=== PATIENT | female | born 1995 | race Caucasian/White ===

== ENCOUNTER 2016-08-17 10:25 | Emergency (ER) | payer SELFPAY ==
[2016-08-17 10:50] VITALS: BP 152/94
--- NOTE | 2016-08-17 11:37 | UC ---
Throat Pain/Nasal Hao HPI - HPI Summary HPI Summary: 20 yo female with about a 5 day hx of sinus pressure pain /nasal congestion/ sore throat and post nasal drip productive cough at times no f/c no sob hx of asthma...no wheezing - History of Current Complaint Chief Complaint: UCRespiratory Stated Complaint: SINUS PRESSURE Time Seen by Provider: 08/17/16 11:31 Hx Obtained From: Patient Hx Last Menstrual Period: 08/12/16 Onset/Duration: Gradual Onset, Lasting Days Severity: Moderate Pain Intensity: 3 Pain Scale Used: 0-10 Numeric Cough: Productive Associated Signs & Symptoms: Positive: Sinus Discomfort, Nasal Discharge - Epiglottits Risk Factors Epiglottis Risk Factors: Negative - Allergies/Home Medications Allergies/Adverse Reactions: Allergies Allergy/AdvReac Type Severity Reaction Status Date / Time No Known Allergies Allergy Verified 08/17/16 10:44 Home Medications: Home Medications Antidepressant 1 tab PO QAM 08/17/16 [History Confirmed 08/17/16] Dextromethorphan-Phenylephrine [Vicks Dayquil Cold & Flu] 2 cap PO Q6H PRN 08/17 [History Confirmed 08/17/16] Norgestimate-Ethinyl Estradiol [Sprintec 28 0.25-35 mg-Mcg] 1 tab PO DAILY 08/17 [History Confirmed 08/17/16] Soft Lens Products [Opti-Free Express Rewetti] 2 drop BOTH EYES QAM 08/17/16 [ History Confirmed 08/17/16] PMH/Surg Hx/FS Hx/Imm Hx Previously Healthy: Yes Respiratory History Of: Reports: Asthma - Surgical History Surgical History: None - Family History Known Family History: Positive: Hypertension, Respiratory Disease - Social History Alcohol Use: Weekly Substance Use Type: None Smoking Status (MU): Never Smoked Tobacco - Immunization History Most Recent Influenza Vaccination: Not the 2016/2016 Season Review of Systems Constitutional: Negative Skin: Negative Eyes: Negative ENT: Sore Throat, Nasal Discharge Respiratory: Cough Cardiovascular: Negative Gastrointestinal: Negative Genitourinary: Negative Motor: Negative Neurovascular: Negative Musculoskeletal: Negative Neurological: Negative Psychological: Negative All Other Systems Reviewed And Are Negative: Yes Physical Exam Triage Information Reviewed: Yes Appearance: Well-Appearing, No Pain Distress, Well-Nourished Vital Signs: Initial Vital Signs Temp 99.2 F 08/17/16 10:40 Pulse 82 08/17/16 10:40 Resp 16 08/17/16 10:40 BP 152/94 08/17/16 10:40 Pulse Ox 99 08/17/16 10:40 Vital Signs Reviewed: Yes Eyes: Positive: Conjunctiva Clear ENT: Positive: Hearing grossly normal, Pharyngeal erythema, Nasal congestion, Nasal drainage, TMs normal, Other: - bilateral max sinus tenderness. Negative: Tonsillar swelling, Tonsillar exudate, Trismus, Muffled/hoarse voice Neck: Positive: Supple, Nontender, Enlarged Nodes @ - ant cervical Respiratory: Positive: Lungs clear, Normal breath sounds, No respiratory distress, No accessory muscle use, Respiratory distress. Negative: Stridor, Wheezing Cardiovascular: Positive: RRR, No Murmur. Negative: Tachycardia, Bradycardia Musculoskeletal Exam: Normal Neurological: Positive: Alert Psychological Exam: Normal Skin Exam: Normal Throat Pain/Nasal Course/Dx - Differential Dx/Diagnosis Provider Diagnoses: acute sinusitis Discharge - Discharge Plan Condition: Stable Disposition: HOME Prescriptions: Amoxicillin (*) 875 mg PO BID #20 tab Fluticasone NASAL SPRAY 50MCG* [Flonase NASAL SPRAY 50MCG*] 2 spray BOTH NARES DAILY #1 btl Patient Education Materials: Sinusitis (ED) Referrals: Sita Lomeli MD [Primary Care Provider] - 5 Days (if not better recheck in about 5 days) Additional Instructions: recheck for new or worsening symptoms
== END 2016-08-17 11:46 | disposition home or self-care (01) ==
LOC: UCCORT 10:25
DX: J01.90 Acute sinusitis, unspecified (principal); J45.909 Unspecified asthma, uncomplicated
CPT/HCPCS: 99212; G0463

== ENCOUNTER 2016-09-12 09:13 | Emergency (ER) | payer OTHER ==
[2016-09-12 09:57] VITALS: BP 130/74
--- NOTE | 2016-09-12 11:12 | UC ---
Respiratory Complaint HPI - HPI Summary HPI Summary: The patient comes in today for: 1. Dizziness, lightheadedness, stuffy nose, sore throat, coughing, headache, backache, weakness: She states that her worse symptoms are sinus pressure/sore throat. Onset: 4 weeks ago. Palliative/provocative: Amoxicillin helped, but she regressed after improving about 80% Quality: Pressure, soreness. Region: Sinuses, throat. Severity: 8/10 though she looks more like 4/10 Time: Constant. Associated symptoms: Fevers: None. Rhinitis: Green yellow Cough productive: green yellow Upper tooth pain: NOne. * - History of Current Complaint Chief Complaint: UCRespiratory Stated Complaint: COUGH/ST Time Seen by Provider: 09/12/16 10:58 Hx Obtained From: Patient Hx Last Menstrual Period: 09/10/16 ?: No - Allergies/Home Medications Allergies/Adverse Reactions: Allergies Allergy/AdvReac Type Severity Reaction Status Date / Time No Known Allergies Allergy Verified 09/12/16 09:57 PMH/Surg Hx/FS Hx/Imm Hx Previously Healthy: No - Allergic rhinitis Endocrine History Of: Denies: Diabetes, Thyroid Disease, Hyperthyroidism, Hypothyroidism, Dyslipidemia Cardiovascular History Of: Denies: Cardiac Disorders, Hypertension, Pacemaker/ICD, Myocardial Infarction , Congestive Heart Failure, Atrial Fibrillation, Deep Vein Thrombosis, Bleeding Disorders Respiratory History Of: Reports: Asthma Denies: COPD, Bronchitis, Pneumonia, Pulmonary Embolism GI/ History Of: Denies: Gastroesophageal Reflux, Ulcer, Gastrointestinal Bleed, Gall Bladder Disease, Kidney Stones, Diverticulitis, Renal Disease, Urosepsis Neurological History Of: Denies: TIA, CVA, Dementia, Seizures, Migraine Psychological History Of: Reports: Anxiety, Depression - She can't remember the name of the anti-depressant. Denies: Bipolar Disorder, Schizophrenia, Post Traumatic Stress Disorder Cancer History Of: Denies: Lung Cancer, Colorectal Cancer, Breast Cancer, Prostate Cancer, Cervical Cancer Other History Of: Negative For: HIV, Hepatitis B, Hepatitis C, Anticoagulant Therapy - Surgical History Surgical History: None - Family History Known Family History: Positive: Hypertension, Respiratory Disease Negative: Cardiac Disease - Social History Occupation: Student Alcohol Use: Weekly Substance Use Type: None Smoking Status (MU): Never Smoked Tobacco - Immunization History Most Recent Influenza Vaccination: Not the 2015/2016 Season Review of Systems Constitutional: Negative Skin: Negative Eyes: Negative ENT: Sore Throat, Nasal Discharge Respiratory: Cough Gastrointestinal: Negative Genitourinary: Negative All Other Systems Reviewed And Are Negative: Yes Physical Exam Triage Information Reviewed: Yes Appearance: Well-Appearing, No Pain Distress, Well-Nourished Vital Signs: Initial Vital Signs Temp 98.5 F 09/12/16 09:53 Pulse 95 09/12/16 09:53 Resp 16 09/12/16 09:53 BP 130/74 09/12/16 09:53 Pulse Ox 100 09/12/16 09:53 Vital Signs Reviewed: Yes Eyes: Positive: Conjunctiva Clear. Negative: Discharge ENT: Positive: Hearing grossly normal. Negative: Pharyngeal erythema, Nasal congestion, Nasal drainage, TM bulging, TM dull, TM red, Tonsillar swelling, Tonsillar exudate Neck: Positive: Supple, Nontender, No Lymphadenopathy. Negative: Nuchal Rigidity Respiratory: Positive: Lungs clear, No respiratory distress, No accessory muscle use. Negative: Crackles, Wheezing Cardiovascular: Positive: RRR, No Murmur Abdomen Description: Positive: Nontender, No Organomegaly, Soft. Negative: Distended, Guarding Musculoskeletal: Positive: Strength Intact, ROM Intact, No Edema Neurological: Positive: Alert, Muscle Tone Normal Psychological: Positive: Age Appropriate Behavior, Consolable Skin: Negative: rashes, breakdown UC Diagnostic Evaluation - Laboratory O2 Sat by Pulse Oximetry: 100 Respiratory Course/Dx - Differential Dx/Diagnosis Differential Diagnosis/HQI/PQRI: Bronchitis, Laryngitis, Sinusitis Provider Diagnoses: Sinusitis. pharyngitis Discharge - Discharge Plan Condition: Stable Disposition: HOME Patient Education Materials: Sinusitis (ED) Referrals: Sita Lomeli MD [Primary Care Provider] - 1 Week (Please see your primary care provider in about a week to see how well you are doing. If you get worse, please be seen sooner.)
== END 2016-09-12 11:26 | disposition home or self-care (01) ==
LOC: UCCORT 09:13
DX: J32.9 Chronic sinusitis, unspecified (principal); J02.9 Acute pharyngitis, unspecified
CPT/HCPCS: 99212; G0463

== ENCOUNTER 2017-03-16 08:27 | Emergency (ER) | payer OTHER ==
[2017-03-16 08:57] VITALS: BP 125/77
--- NOTE | 2017-03-16 09:52 | UC ---
Complaint Female HPI - HPI Summary HPI Summary: 21 yo female presents here with a number of problems 1. Profuse vaginal d/c x 6 weeks, thin and foul smelling no pelvic pain no f/c no n/v/d no uti symptoms no dysparuena 2. lip infection x 2 days she squeezed a pimple below her lower lip yesterday now swollen and tender no hx MRSA 3. Chronic sinus pressure and pain 4-5 month hx - History Of Current Complaint Chief Complaint: UCSkin Stated Complaint: SWOLLEN LIP,SINUS,PERSONAL Time Seen by Provider: 03/16/17 08:59 Hx Obtained From: Patient Hx Last Menstrual Period: 02/22/17 Onset/Duration: Gradual Onset, Lasting Weeks Timing: Constant Severity Initially: Moderate Severity Currently: Moderate Pain Intensity: 0 Pain Scale Used: 0-10 Numeric Character: Not Applicable Aggravating Factor(s): Nothing Alleviating Factor(s): Nothing Associated Signs And Symptoms: Positive: Vaginal Discharge - ++++ - Allergies/Home Medications Allergies/Adverse Reactions: Allergies Allergy/AdvReac Type Severity Reaction Status Date / Time seasonal Allergy Congestion Uncoded 03/16/17 08:58 PMH/Surg Hx/FS Hx/Imm Hx Previously Healthy: Yes Other History Of: Negative For: HIV, Hepatitis B, Hepatitis C, Anticoagulant Therapy - Surgical History Surgical History: None - Family History Known Family History: Positive: Hypertension, Respiratory Disease Negative: Cardiac Disease - Social History Alcohol Use: Occasionally Substance Use Type: None Smoking Status (MU): Never Smoked Tobacco - Immunization History Most Recent Influenza Vaccination: Not the 2015/2016 Season Review of Systems Constitutional: Negative Skin: Negative Eyes: Negative ENT: Nasal Discharge, Sinus Congestion, Other - lower lip pain and swelling Respiratory: Negative Cardiovascular: Negative Gastrointestinal: Negative Genitourinary: Other - profuse /foul smelling d/c Motor: Negative Neurovascular: Negative Musculoskeletal: Negative Neurological: Negative Psychological: Negative All Other Systems Reviewed And Are Negative: Yes Physical Exam Triage Information Reviewed: Yes Appearance: Well-Appearing, No Pain Distress, Well-Nourished Vital Signs: Initial Vital Signs Temp 99.8 F 03/16/17 08:43 Pulse 98 03/16/17 08:43 Resp 18 03/16/17 08:43 BP 125/77 03/16/17 08:43 Vital Signs Reviewed: Yes Eyes: Positive: Conjunctiva Clear ENT: Positive: Hearing grossly normal, Nasal congestion, Nasal drainage, TMs normal, Other: - no sinus tenderness or pain. Negative: Tonsillar swelling, Tonsillar exudate, Trismus, Muffled/hoarse voice Dental: Positive: Other: - lower lip swollen/not fluctuant Neck: Positive: Nontender, No Lymphadenopathy Cardiovascular: Positive: RRR, No Murmur Abdomen Description: Positive: Nontender, No Organomegaly, Soft, Other: - ext genitalia-no lesions, vagina-profuse thin vaginal d/c which lacks fishy oder, cx -"strawberry cervix" with thin d/c, no CMT , adenexa- non tender no masses, uterus- normal sixed and non tender. Negative: CVA Tenderness (R), CVA Tenderness (L) Musculoskeletal: Positive: ROM Intact, No Edema Neurological: Positive: Alert Skin Exam: Other - see image Complaint Female Dx - Differential Dx/Diagnosis Provider Diagnoses: vaginal discharge (suspect trichomonias). infected pustule (chin) causing lip edema. chronic sinus congestion (?infection vs allergies) Discharge - Discharge Plan Condition: Stable Disposition: HOME Prescriptions: DOXYcycline CAP(*) [DOXYcycline 100MG CAP(*)] 100 mg PO BID #20 cap Fluticasone NASAL * [Flonase *] 2 spray BOTH NARES DAILY #1 spray Metronidazole [Flagyl 500 MG TAB] 2,000 mg PO ONCE #4 tab Patient Education Materials: Trichomoniasis (ED), Vaginitis (ED), Abscess (ED) Referrals: Phil Lazaro MD [Medical Doctor] - (I don't know what their Christiano # is You can check on line) Sita Lomeli MD [Primary Care Provider] - 1 Week Additional Instructions: Your lip infection does not need to be incised and drained If it worsens please return warm/soapy compresses 3-4 x daily Don't squeeze The doxy is good for sinus infections too tests for your vaginal discharge are pending I suspect trichomonias and we will treat you for that ...but tests are pending at this point recheck for pelvic pain/fever/vomiting Images Head: 1 - scab 2 - swollen/no flutuance/no overlying erthema
== END 2017-03-16 10:05 | disposition home or self-care (01) ==
LOC: UCCORT 08:27
DX: N89.8 Other specified noninflammatory disorders of vagina (principal); L08.9 Local infection of the skin and subcutaneous tissue, unspecified; R09.81 Nasal congestion
CPT/HCPCS: 87480; 87491; 87510; 87591; 87661; 99212; G0463

== ENCOUNTER 2017-09-17 18:58 | Emergency (ER) | payer OTHER ==
[2017-09-17 19:10] VITALS: BP 156/105
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
== END 2017-09-17 20:00 | disposition home or self-care (01) ==
LOC: UCEAST 18:58
DX: S06.0X0A Concussion without loss of consciousness, initial encounter (principal); W22.8XXA Striking against or struck by other objects, initial encounter; Y93.E2 Activity, laundry; Y92.009 Unspecified place in unspecified non-institutional (private) residence as the place of occurrence of the external cause; Z87.820 Personal history of traumatic brain injury; J45.909 Unspecified asthma, uncomplicated
CPT/HCPCS: 99212; G0463

== ENCOUNTER 2017-09-17 20:38 | Emergency (ER) | payer OTHER ==
[2017-09-17] MEDS ORDERED: Metoclopramide TAB* 10 MG PO ONE (22:27)
[2017-09-17] MEDS ORDERED: Ibuprofen TAB* 600 MG PO ONE (22:27)
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
[2017-09-18 00:04] VITALS: BP 116/62
--- NOTE | 2017-09-18 07:34 | RAD ---
INDICATION: Renal injury 1 week ago. Headaches COMPARISON: None TECHNIQUE: Noncontrast axial source images were acquired from the skull base to the vertex. FINDINGS: Ventricles/sulci: The ventricles and cisterns are normal in size and configuration for age. Brain parenchyma: There is no focal parenchymal finding, evidence of intracranial mass, or intracranial mass effect. Intracranial hemorrhage:None. Extra-axial spaces: There are no abnormal extra axial fluid collections or evidence of extra-axial mass. Calvarium: There is no calvarial fracture or other calvarial abnormality. Scalp: There is no evidence of scalp or extracalvarial soft tissue abnormality. Paranasal sinuses/mastoid: The paranasal sinuses and mastoid air cells are clear. Other: None. IMPRESSION: NEGATIVE EXAMINATION
== END 2017-09-18 00:04 | disposition home or self-care (01) ==
LOC: ED 20:38
DX: S06.9X0A Unspecified intracranial injury without loss of consciousness, initial encounter (principal); W22.8XXA Striking against or struck by other objects, initial encounter; Y92.9 Unspecified place or not applicable
CPT/HCPCS: 70450; 99282; A9270-GY

== ENCOUNTER 2017-11-29 16:32 | Emergency (ER) | payer OTHER ==
[2017-11-29 17:34] VITALS: BP 133/80
--- NOTE | 2017-11-29 18:20 | UC ---
Complaint Female HPI - HPI Summary HPI Summary: Pt c/o sudden onset of dysuria, frequency and urgency X 1 day. Pt took AZO prior to arrival to clinc - History Of Current Complaint Chief Complaint: UCGU Stated Complaint: URINARY Time Seen by Provider: 11/29/17 17:50 Hx Obtained From: Patient Hx Last Menstrual Period: FIRST WK OF NOVEMBER ?: No Onset/Duration: Sudden Onset, Lasting Days, Still Present Timing: Constant Severity Initially: Mild Severity Currently: Moderate Pain Intensity: 7 Character: Dull, Burning Aggravating Factor(s): Urination Alleviating Factor(s): Meds - AZO Associated Signs And Symptoms: Positive: Negative - Risk Factors Ectopic Risk Factor: Negative Ovarian Torsion Risk Factor: Reproductive Age - Allergies/Home Medications Allergies/Adverse Reactions: Allergies Allergy/AdvReac Type Severity Reaction Status Date / Time seasonal Allergy Congestion Uncoded 11/29/17 17:21 Home Medications: Home Medications Fluticasone HFA 110 mcg(NF) [Flovent HFA 110 mcg(NF)] 2 puff INH BID 11/29/17 [ History Confirmed 11/29/17] Phenazopyridine HCl [Urinary Pain Relief] 95 mg PO DAILY PRN 11/29/17 [History Confirmed 11/29/17] PMH/Surg Hx/FS Hx/Imm Hx Previously Healthy: Yes Other History Of: Negative For: HIV, Hepatitis B, Hepatitis C, Anticoagulant Therapy - Surgical History Surgical History: None - Family History Known Family History: Positive: Hypertension, Respiratory Disease Negative: Cardiac Disease - Social History Occupation: Employed Part-time Lives: With Family Alcohol Use: Weekly Substance Use Type: None Smoking Status (MU): Never Smoked Tobacco Have You Smoked in the Last Year: No - Immunization History Most Recent Influenza Vaccination: Not the Season Review of Systems Constitutional: Fatigue Skin: Negative Eyes: Other - tearful durng exam ENT: Negative Respiratory: Negative Cardiovascular: Negative Gastrointestinal: Negative Genitourinary: Dysuria, Hematuria, Frequency, Urgency Motor: Negative Neurovascular: Negative Musculoskeletal: Negative Neurological: Negative Psychological: Negative Is Patient Immunocompromised?: No All Other Systems Reviewed And Are Negative: Yes Physical Exam Triage Information Reviewed: Yes Appearance: Pain Distress, Thin, Other: - tearful , Vital Signs: Initial Vital Signs Temp 98.6 F 11/29/17 17:27 Pulse 100 04/22/18 17:27 Resp 18 11/29/17 17:27 BP 133/80 11/29/17 17:27 Pulse Ox 98 11/29/17 17:27 Vital Signs Reviewed: Yes Eye Exam: Normal ENT Exam: Normal Dental Exam: Normal Respiratory: Positive: No respiratory distress Abdomen Description: Positive: Nontender Musculoskeletal Exam: Normal Neurological Exam: Normal Psychological Exam: Normal Psychological: Positive: Consolable Skin Exam: Normal Complaint Female Dx - Differential Dx/Diagnosis Differential Diagnosis/HQI/PQRI: Urinary Tract Infection Provider Diagnoses: UTI Discharge - Sign-Out/Discharge Documenting (check all that apply): Discharge - Discharge Plan Condition: Stable Disposition: HOME Prescriptions: Cephalexin CAP* [Keflex 500 CAP*] 500 mg PO TID #21 cap Patient Education Materials: Urinary Tract Infection in Women (ED) Referrals: Natasha Gaitan MD [Primary Care Provider] - Additional Instructions: Please follow up with your PCP or return to clinic as needed. - Billing Disposition and Condition Condition: STABLE Disposition: HOME
[2017-11-29] MEDS ORDERED: Cephalexin CAP* 500 MG PO ONE (18:21)
== END 2017-11-29 18:45 | disposition home or self-care (01) ==
LOC: UCCORT 16:32
DX: N39.0 Urinary tract infection, site not specified (principal)
CPT/HCPCS: 87086; 99212; A9270-GY; G0463

== ENCOUNTER 2018-03-16 17:47 | Emergency (ER) | payer OTHER ==
[2018-03-16 17:57] VITALS: BP 153/100
--- NOTE | 2018-03-16 18:28 | UC ---
Throat Pain/Nasal Hao HPI - HPI Summary HPI Summary: This is scribe Cruzito Sheppard documenting for attending Moncho Angel MD. This patient is a 22 year old F presenting to [facility] with a chief complaint of sore throat and swollen tonsils since 3 days ago. The patient rates the pain 8/ 10 in severity. Patient reports difficulty swallowing and speaking, blistered tonsils, congestion, and white exudates. Patient denies fatigue, cough, or fever. Pt reports that they have been having issues with her tonsils intermittently for several years. A prior ENT physician recommended surgery but she did not want the surgery at the time. PMHx swollen tonsils. I, Dr. Angel, personally performed the services described in this documentation as scribed in my presence and it is both accurate and complete. - History of Current Complaint Chief Complaint: UCGeneralIllness Stated Complaint: SORE THROAT Time Seen by Provider: 03/16/18 18:02 Hx Obtained From: Patient Hx Last Menstrual Period: Onset/Duration: Gradual Onset, Lasting Days - 3 Severity: Severe Pain Intensity: 8 Pain Scale Used: 0-10 Numeric Cough: None Associated Signs & Symptoms: Negative: Fever - Allergies/Home Medications Allergies/Adverse Reactions: Allergies Allergy/AdvReac Type Severity Reaction Status Date / Time seasonal Allergy Congestion Uncoded 03/16/18 17:57 PMH/Surg Hx/FS Hx/Imm Hx Other History Of: Negative For: HIV, Hepatitis B, Hepatitis C, Anticoagulant Therapy - Surgical History Surgical History: None - Family History Known Family History: Positive: Hypertension, Respiratory Disease Negative: Cardiac Disease - Social History Alcohol Use: Weekly Substance Use Type: None Smoking Status (MU): Never Smoked Tobacco Have You Smoked in the Last Year: No - Immunization History Most Recent Influenza Vaccination: Not the 2016/2017 Season Review of Systems Constitutional: Negative ENT: Sore Throat, Sinus Congestion, Other - swollen, blistered tonsils; difficulty swallowing and talking Respiratory: Negative All Other Systems Reviewed And Are Negative: Yes Physical Exam - Summary Physical Exam Summary: General: well-appearing, no pain distress Skin: warm, color reflects adequate perfusion, dry Head: normal Eyes: EOMI, YUN ENT: Tonsils 2+ bilaterally, bilateral tonsillar exudate, uvula midline. No evidence of peritonsillar abscess. Positive cervical lymphadenopathy. Neck: supple, nontender Respiratory: CTA, breath sounds present Cardiovascular: RRR Abdomen: soft, nontender Bowel: present Musculoskeletal: normal, strength/ROM intact Neurological: sensory/motor intact, A&O x3 Psychological: affect/mood appropriate Triage Information Reviewed: Yes Vital Signs: Initial Vital Signs Temp 99.1 F 03/16/18 17:51 Pulse 87 03/16/18 17:51 Resp 20 03/16/18 17:51 BP 153/100 03/16/18 17:51 Pulse Ox 99 03/16/18 17:51 Vital Signs Reviewed: Yes Throat Pain/Nasal Course/Dx - Course Course Of Treatment: DISCUSSED SX TREATMENT OF SINUS CONGESTION AND SORE THROAT. IN THE PAST ANTIBIOTICS HAVE HELPED WITH THE ENLARGED PAINFUL TONSILS. RX AMOX. NO MONONUCLEOSIS SX. WILL REFER TO ENT THIS IS A RECURRENT ISSUE. - Differential Dx/Diagnosis Provider Diagnoses: TONSILLITIS Discharge - Sign-Out/Discharge Documenting (check all that apply): Patient Departure - Discharge Plan Condition: Stable Disposition: HOME Prescriptions: Amoxicillin PO (*) [Amoxicillin 875 MG (*)] 875 mg PO BID #20 tab Patient Education Materials: Tonsillitis (ED) Referrals: Natasha Gaitan MD [Primary Care Provider] - Gautam Martinez MD [Medical Doctor] - Additional Instructions: FOLLOW UP WITH ENT. GET RECHECKED FOR ANY WORSENING OF YOUR CONDITION OR QUESTIONS OR CONCERNS. - Billing Disposition and Condition Condition: STABLE Disposition: Home
== END 2018-03-16 19:00 | disposition home or self-care (01) ==
LOC: UCEAST 17:47
DX: J03.90 Acute tonsillitis, unspecified (principal); Z82.49 Family history of ischemic heart disease and other diseases of the circulatory system; Z83.6 Family history of other diseases of the respiratory system
CPT/HCPCS: 87651; 99212; G0463

== ENCOUNTER 2018-07-10 09:26 | Emergency (ER) | payer OTHER ==
[2018-07-10 09:47] VITALS: BP 116/84
--- NOTE | 2018-07-10 10:13 | ED ---
GI/ HPI - HPI Summary HPI Summary: 22 yr old female with the complaint of dysuria, frequency of urination, and hesitancy. Onset a few days ago. no fever chills or back pain. She also had a brief nose bleed this morning from left nostril that spontaneously resolved. No other complaints. - History of Current Complaint Chief Complaint: UCGU Time Seen by Provider: 07/10/18 09:48 Stated Complaint: NOSE BLEED,URINARY COMPLAINT Hx Last Menstrual Period: 3 weeks ago Pain Intensity: 7 - Allergy/Home Medications Allergies/Adverse Reactions: Allergies Allergy/AdvReac Type Severity Reaction Status Date / Time amoxicillin Allergy Hives Verified 07/10/18 09:40 Penicillins Allergy Hives Verified 07/10/18 09:40 seasonal Allergy Congestion Uncoded 07/10/18 09:40 Home Medications: Home Medications Cranberry Conc/C/Bacill Coag [Azo Cranberry 250-30 mg] 2 tab PO ONCE PRN [History Confirmed 07/10/18] PMH/Surg Hx/FS Hx/Imm Hx Endocrine/Hematology History: Denies: Hx Anticoagulant Therapy, Hx Diabetes, Hx Thyroid Disease Cardiovascular History: Denies: Hx Congestive Heart Failure, Hx Deep Vein Thrombosis, Hx Hypertension , Hx Myocardial Infarction, Hx Pacemaker/ICD Respiratory History: Reports: Hx Asthma Denies: Hx Chronic Obstructive Pulmonary Disease (COPD), Hx Lung Cancer, Hx Pneumonia, Hx Pulmonary Embolism GI History: Denies: Hx Gall Bladder Disease, Hx Gastrointestinal Bleed, Hx Ulcer, Hx Urosepsis History: Denies: Hx Kidney Stones, Hx Renal Disease Neurological History: Denies: Hx Dementia, Hx Migraine, Hx Seizures, Hx Transient Ischemic Attacks (TIA) Psychiatric History: Reports: Hx Anxiety, Hx Depression - She can't remember the name of the anti-depressant. Denies: Hx Schizophrenia, Hx Bipolar Disorder - Surgical History Surgery Procedure, Year, and Place: tubes in ear - Immunization History Date of Tetanus Vaccine: utd Date of Influenza Vaccine: none Infectious Disease History: No Infectious Disease History: Reports: Hx Shingles Denies: Hx Clostridium Difficile, Hx Hepatitis, Hx Human Immunodeficiency Virus (HIV), Hx of Known/Suspected MRSA, Hx Tuberculosis, Hx Known/Suspected VRE , Hx Known/Suspected VRSA, History Other Infectious Disease, Traveled Outside the [place] in Last 30 Days - Family History Known Family History: Positive: Hypertension, Respiratory Disease Negative: Cardiac Disease - Social History Occupation: Employed Full-time Lives: With Family Alcohol Use: Occasionally Substance Use Type: Reports: None Smoking Status (MU): Never Smoked Tobacco Have You Smoked in the Last Year: No Review of Systems Constitutional: Negative Positive: dysuria, frequency All Other Systems Reviewed And Are Negative: Yes Physical Exam Triage Information Reviewed: Yes Vital Signs On Initial Exam: Initial Vitals Temp Pulse Resp BP Pulse Ox 98.7 F 88 14 116/84 99 07/10/18 09:41 07/10/18 09:41 07/10/18 09:41 07/10/18 09:41 07/10/18 09:41 Vital Signs Reviewed: Yes Appearance: Positive: Well-Appearing, No Pain Distress Skin: Positive: Warm, Skin Color Reflects Adequate Perfusion Head/Face: Positive: Normal Head/Face Inspection Eyes: Positive: EOMI ENT: Positive: Normal ENT inspection, Other - left nasal septum with small friable mucosa area without any bleeding. Neck: Positive: Nontender Respiratory/Lung Sounds: Positive: Clear to Auscultation, Breath Sounds Present Cardiovascular: Positive: RRR. Negative: Murmur Abdomen Description: Positive: Nontender. Negative: CVA Tenderness (R), CVA Tenderness (L) Musculoskeletal: Positive: Strength/ROM Intact Neurological: Positive: Sensory/Motor Intact, Alert, Oriented to Person Place, Time, CN Intact II-III Psychiatric: Positive: Normal - Justine Coma Scale Best Eye Response: 4 - Spontaneous Best Motor Response: 6 - Obeys Commands Best Verbal Response: 5 - Oriented Coma Scale Total: 15 Diagnostics - Vital Signs Vital Signs Temp Pulse Resp BP Pulse Ox 07/10/18 09:41 98.7 F 88 14 116/84 99 - Laboratory Lab Statement: Any lab studies that have been ordered have been reviewed, and results considered in the medical decision making process. GIGU Course/Dx - Course Course Of Treatment: 22 yr old with uTI and nose bleed. DC home on bactrim. Humidify home air. - Diagnoses Provider Diagnoses: UTI (urinary tract infection), Epistaxis Discharge - Sign-Out/Discharge Documenting (check all that apply): Patient Departure All imaging exams completed and their final reports reviewed: No Studies - Discharge Plan Condition: Good Disposition: HOME Patient Education Materials: Urinary Tract Infection in Women (ED), Nosebleed ( ED) Referrals: Natasha Gaitan MD [Primary Care Provider] - - Billing Disposition and Condition Condition: GOOD Disposition: Home
== END 2018-07-10 10:31 | disposition home or self-care (01) ==
LOC: UCCORT 09:26
DX: N39.0 Urinary tract infection, site not specified (principal); Z88.0 Allergy status to penicillin; R04.0 Epistaxis
CPT/HCPCS: 81025; 87086; 99212; G0463

== ENCOUNTER 2018-08-20 09:57 | Day surgery (SDC) | payer BC, OTHER ==
[~2018-08-20 09:57] MED LIST: Buffered Lidocaine 0.9% SYRIN* 5 ML/SYR SYRINGE INTRADERM ONE; Lactated Ringers 1000 ML Bag* 1,000 ML IV SCH; Sodium Citrate/Citric Acid* 15 ML UDC PO ONE
[2018-08-20] MEDS ORDERED: Buffered Lidocaine 1% SYRIN* 1 ML/SYRINGE ONE (10:32)
[2018-08-20] MEDS ORDERED: Sodium Citrate/Citric Acid* 15 ML UDC ONE (10:32)
[2018-08-20] MEDS ORDERED: Succinylcholine* 20 MG/ML 10 ML VIAL ONE (12:44)
[2018-08-20] MEDS ORDERED: Dexamethasone IV* 4 MG/ML 1 ML (4 MG) ONE (12:44)
[2018-08-20] MEDS ORDERED: Midazolam* 1 MG/ML 2 ML VIAL (2 MG) ONE (12:44)
[2018-08-20] MEDS ORDERED: fentaNYL* 50 MCG/ML 2 ML VIAL (100 MCG VIAL) ONE ×3 (12:44→13:46)
[2018-08-20] MEDS ORDERED: Propofol* 10 MG/ML 20 ML BTL ONE (12:44)
[2018-08-20] MEDS ORDERED: Lidocaine 2% PF * 5 ML VIAL ONE (12:45)
[2018-08-20] MEDS ORDERED: fentaNYL* 50 MCG/ML 2 ML VIAL (100 MCG VIAL) IV PRN (13:43)
[2018-08-20] MEDS ORDERED: Naloxone* 0.4 MG/ML 1 ML VIAL IV PRN (13:43)
[2018-08-20] MEDS ORDERED: DiMENhydriNATE IV* 50 MG/ML VIAL IV PUSH PRN (13:43)
[2018-08-20] MEDS ORDERED: Ibuprofen PED LIQ 100 MG/5 ML UDC ONE ×3 (14:36→14:56)
[2018-08-20 15:15] VITALS: BP 120/78
--- NOTE | 2018-08-20 20:25 | OP ---
DATE OF OPERATION: 08/20/18 - SDS DATE OF : [birth year] ATTENDING SURGEON: Gautam Martinez MD PROSTHETIST: None. ANESTHESIA: General. PRE-OP DIAGNOSIS: Chronic tonsillitis. POST-OP DIAGNOSIS: Chronic tonsillitis. OPERATIVE PROCEDURE: Tonsillectomy. ESTIMATED BLOOD LOSS: Less than 20 cc. SPECIMEN: Right and left tonsil to Pathology. INDICATION: This is a 22-year-old woman with history of chronic tonsillitis, who presents for elective tonsillectomy. DESCRIPTION OF PROCEDURE: The patient was brought to the operating room. General anesthesia was induced and an oral endotracheal tube was placed. The table was turned to 90 degrees, the patient draped, and a time-out was performed. The McIvor mouth gag was used to facilitate exposure of the oropharynx. It was suspended from the [place] stand. The right tonsil was addressed first. It was dissected free of its fossa utilizing the coblation device at a setting of 7 and 3. There was minimal bleeding. The left tonsil was removed in a similar fashion, again utilizing the coblation device at a setting of 7 and 3, with minimal bleeding. Once the tonsils were removed, the superior and inferior pole regions were prophylactically cauterized with the coblation device at a setting of 5 on the coag. An orogastric tube was then passed into the stomach and the stomach contents were evacuated. The mouth gag was then removed for a minute. It was then replaced and the tonsillar fossae were re-explored. There was no evidence of active bleeding and so the patient was returned to the care of the anesthesiologist for extubation. [id number]/[facility] #: [id number] MTDD
== END 2018-08-20 15:18 | disposition home or self-care (01) ==
LOC: OR 09:57
PROVIDERS: ATTEND Otolaryngology
DX: J35.01 Chronic tonsillitis (principal); J45.909 Unspecified asthma, uncomplicated; F41.8 Other specified anxiety disorders
CPT/HCPCS: 81025; 88304; A9270-GY; J0330; J1100; J2250; J2704; J3010

== ENCOUNTER 2018-12-23 17:54 | Emergency (ER) | payer BC ==
--- OUTSIDE RECORDS SUMMARY | 2018-12-23 18:30 | XMS REPORT | Continuity of Care Document ---
:1995 Author Organization [facility] Address [address], [place] [id number] Phone Care Team Providers Name Role Phone Hazel Negrete NP Unavailable Unavailable Allergies, Adverse Reactions, Alerts Substance Reaction Status No Known Allergies Active Medications Medication Instructions Dosage Effective Dates Status Comments (start - stop) CITALOPRAM HBR Not Available - Active (unknown strength) VENTOLIN HFA (unknown Not Available - Active strength) FLOVENT HFA (unknown Not Available - Active strength) PREVIFEM (unknown Not Available - Active strength) Problems Condition Effective Dates (start - Clinical Status Comments stop) Human immunodeficiency virus [HIV] - counseling 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, unsp Human immunodeficiency virus [HIV] - counseling Encounter for surveillance of contraceptive pills Encntr screen for infections w sexl mode of transmiss Acute vaginitis Encounter for screening for human - immunodeficiency virus Procedures Procedure Date No information Results Test Name Date and Time Measure Units Reference Range Abnormal Flag Status Comments No information Advance Directives Directive Yes / No Effective Date File Name No information Encounters Encounter Practice Location Reason(s) Diagnoses Date Provider Providers Description For Visit Copied on Encounter [facility] [place] [facility]. [facility] [address] [facility] [address] [place], [place], [place], [address], [id number], [place]. [place] tel:[phone] tel:[phone] [facility] Sep- [facility] [place] immunodeficiency 5-201 Hazel. Provider: Southern virus [HIV] 9 [address] counselingFollicula [place], [place], [address], [address] [place] and subcutaneous [place], [place] [address], [place], tissue, unsp [place], [place], [address], [place], [address]. [id number], [place]. tel:[phone] [place] tel:[phone] tel:[phone] [facility] December- [facility] [place] immunodeficiency [phone] Nikole. Provider: Southern virus [HIV] [address] counseling[address] [place], [address] [place] [place] [address] [place] contraceptive [place], St, St, [place], pillsEncntr screen [place], [place], [place] [address], [place], [address]. [id number], sexl mode of [place]. [place] transmissAcute tel:[phone] vaginitisEncounter [id number] for screening for human immunodeficiency virus Family History Family Member Diagnosis Age At Onset No information Immunizations Vaccine Date Status Comments No information Payers Payer name Insurance type Covered alliance party ID Authorization(s) [facility] [id number] Social History Type Description Quantity Date Captured Comments Alcohol Use Details Unknown Caffeine Use Details Unknown Tobacco Use Status Unknown Smoking Status Never smoker Sex Female Vital Signs Date / Height Weight BMI Pulse Blood Temperature Respiratory Body Head BMI Pulse Inhaled Time: Rate Pressure Rate Surface Circumference percentile Ox Ox Area No information Chief Complaint And Reason For Visit No information Reason For Referral Reason For Referral No information Plan Of Treatment Date Type Action Status Referral Ordered: ordered Referrals: Gravel Truck Driver. Location: [facility] Evaluate and treat History Of Present Illness Encounter Date Complaint History Of Present Illness No information Functional Status Date Functional Assessment No information Medications Administered Medication Instructions Dosage Effective Dates (start - stop) Status Comments No information Instructions Date Instruction Additional Information No information Assessments Type Assessment Date No information Goals Health Concern Goal Type Priority Status Date No information Medical Equipment Description Device [place] Device Identifier Effective Dates (start - stop ) Status No information Mental Status Date Cognitive Assessment No information Health Concerns Observation Date No information Concern Status Date No information
[2018-12-23 18:43] VITALS: BP 131/88
--- NOTE | 2018-12-23 19:26 | UC ---
Complaint Female HPI - HPI Summary HPI Summary: Pt presents with c/o vaginal odor, pain with intercourse and irregular bleeding. Pt reports that she is sexually active (heterosexual), has one partner , uses condoms and and is on control pills.Pt reports that she has had a vaginal odor and discomfort X 2 years. Pt reports that she has had BV in the past was tested for STD's 1 year ago. Has not tested positive for any STI's and now reports that she had sexual intercourse 3 weeks ago and it was painful and now has intermittent irregular vaginal bleeding. Pt also continues to have vaginal odor. - History Of Current Complaint Chief Complaint: UCGU Stated Complaint: PERSONAL Time Seen by Provider: 12/23/18 18:31 Hx Obtained From: Patient Hx Last Menstrual Period: 12/06/18 ?: No Onset/Duration: Gradual Onset, Lasting Weeks - 2 years, Still Present Timing: Constant Severity Initially: Mild Severity Currently: Severe Pain Intensity: 0 Character: Dull Aggravating Factor(s): [place] Associated Signs And Symptoms: Positive: Vaginal Bleeding/Discharge - Risk Factors Ectopic Risk Factor: Negative Ovarian Torsion Risk Factor: Reproductive Age - Allergies/Home Medications Allergies/Adverse Reactions: Allergies Allergy/AdvReac Type Severity Reaction Status Date / Time amoxicillin Allergy Hives Verified 12/23/18 18:43 Home Medications: Home Medications Norgestimate-Ethinyl Estradiol [Ortho-Cyclen 28 Tablet] 1 tab PO BEDTIME [History Confirmed 12/23/18] PMH/Surg Hx/FS Hx/Imm Hx Previously Healthy: Yes Other History Of: Negative For: HIV, Hepatitis B, Hepatitis C, Anticoagulant Therapy - Surgical History Surgical History: Yes Surgery Procedure, Year, and Place: Tubes in ear 1998 - Family History Known Family History: Positive: Hypertension, Respiratory Disease Negative: Cardiac Disease - Social History Occupation: Employed Full-time Lives: With Family Alcohol Use: Weekly Alcohol Amount: couple drinks per week Substance Use Type: None Smoking Status (MU): Never Smoked Tobacco Have You Smoked in the Last Year: No - Immunization History Most Recent Influenza Vaccination: Not the 2016/2016 Season Vaccination Up to Date: Yes Review of Systems All Other Systems Reviewed And Are Negative: Yes Constitutional: Positive: Negative Skin: Positive: Negative Eyes: Positive: Negative ENT: Positive: Negative Respiratory: Positive: Negative Cardiovascular: Positive: Negative Gastrointestinal: Positive: Negative Genitourinary: Positive: Abnormal Bleeding, Other - strong vaginal malodor Motor: Positive: Negative Neurovascular: Positive: Negative Musculoskeletal: Positive: Negative Neurological: Positive: Negative Psychological: Positive: Negative Is Patient Immunocompromised?: No Physical Exam Triage Information Reviewed: Yes Appearance: Well-Appearing Vital Signs: Initial Vital Signs Temp 99.6 F 12/23/18 18:32 Pulse 77 12/23/18 18:32 Resp 14 12/23/18 18:32 BP 131/88 12/23/18 18:32 Pulse Ox 99 12/23/18 18:32 Vital Signs Reviewed: Yes Eye Exam: Normal ENT Exam: Normal Dental Exam: Normal Respiratory: Positive: No respiratory distress Abdominal Exam: Normal Abdomen Description: Positive: Nontender Pelvic Exam: Positive: External Exam Normal, Active Bleeding, Lesions, Other - possible cauliflower like lesion on cervix, malodorous discharge- strong Musculoskeletal Exam: Normal Neurological Exam: Normal Psychological Exam: Normal Skin Exam: Normal Complaint Female Dx - Course Course Of Treatment: Pt was instructed to f/u with a metal fabricating supervisor provider as soon as possible. Pt verbalized understanding and agreed to plan of care. - Differential Dx/Diagnosis Differential Diagnosis/HQI/PQRI: Cervicitis, Sexually Transmitted Disease, Other - vaginitis Provider Diagnosis: Vaginitis, Abnormal uterine and vaginal bleeding, unspecified, Vaginal discharge, bloody Discharge - Sign-Out/Discharge Documenting (check all that apply): Patient Departure All imaging exams completed and their final reports reviewed: No Studies - Discharge Plan Condition: Stable Disposition: HOME Prescriptions: metroNIDAZOLE * [Flagyl] 500 mg PO Q12H #14 tablet Patient Education Materials: Dysfunctional Uterine Bleeding (ED), Vaginitis (ED ) Referrals: [facility] [Outside] - As Soon As Possible [facility] [Outside] - As Soon As Possible Natasha Gaitan MD [Primary Care Provider] - As Soon As Possible Enedelia Diaz MD [Medical Doctor] - As Soon As Possible Yina Garibay CNM [Adult Basic Education Instructor] - As Soon As Possible - Billing Disposition and Condition Condition: STABLE Disposition: Home
== END 2018-12-23 19:32 | disposition home or self-care (01) ==
LOC: UCCORT 17:54
DX: N76.0 Acute vaginitis (principal); N93.9 Abnormal uterine and vaginal bleeding, unspecified; Z88.0 Allergy status to penicillin
CPT/HCPCS: 87480; 87510; 87660; 99212; G0463

== ENCOUNTER 2019-04-22 20:00 | Emergency (ER) | payer BC ==
[2019-04-22 21:02] LABS: ABS Lymphocytes 2.4 10^3/ul (1.0-4.8); ABS Monocytes 0.5 10^3/ul (0-0.8); Hematocrit 41 % (35-47); Hemoglobin 13.7 g/dL (12.0-16.0); Lymphocyte % 29.7 %; Mean Corpuscular HGB Conc 33 g/dL (31-36); Mean Corpuscular Hemoglobin 28 pg (27-31); Mean Corpuscular Volume 85 fL (80-97); Mean Platelet Volume 7.2 fL (7.4-10.4); Nucleated Red Blood Cells % 0.1; Platelet Count 358 10^3/uL (150-450); Red Blood Count 4.83 10^6 /uL (3.70-4.87); Red Cell Distribution Width 14 % (10-15); White Blood Count 7.9 10^3/uL (3.5-10.8)
--- NOTE | 2019-04-22 21:18 | ED ---
Psychiatric Complaint - HPI Summary HPI Summary: This pt is a 23 Y/O F presenting to [facility] with a CC of increasing anxiety and depression that has been worsening over the course of the year. She states that she was seeing a yanni and her symptoms has been getting worse. They started seeing each other in September and they were doing well until October when he had to lay off some of his employees. She states that he said some stuff that really concerned her and that she has other really shitty things in life. She states that she lost her job last month and her dog had to get a tumor removed today. She states that her yanni friend said some stuff that made her feel uncomfortable about what he was going to do tonight. She states that she did not say anything since she was scared to upset him more than he already was. She states that he said things that made her feel like he was going to leave her too. She states that she has been with a lot of really bad guys and that she did not expect him to be like this. She states that she has had on and off thoughts about hurting herself and stated that Im tired of my life being bad after bad after bad and I want the pain to stop and enjoy things. She states that she has a Hx of self-harm and a suicidal attempt 3 years ago. She states that she has been bounced from counselor to counselor due to her slow progress. She states that her last period was around a month ago. She was on medications in the past for depression but is currently not on anything. She states that she has had a decrease in appetite and has been sleep deprived due to her recent thoughts. Home Medications Medication Instructions Recorded Confirmed Type NK [No Home Medications Reported] 04/22/19 04/22/19 History - History Of Current Complaint Chief Complaint: EDMentalHealth Time Seen by Provider: 04/22/19 20:22 Hx Obtained From: Patient Hx Last Menstrual Period: 03/23/19 ?: No Onset/Duration: Gradual Onset, Still Present, Worse Since Timing: Constant Severity Initially: Moderate Severity Currently: Severe Character: Depressed Aggravating Factor(s): Recent Stress - boyfriend, dog, fired from her job Alleviating Factor(s): Nothing Associated Signs And Symptoms: Positive: Sleep Disturbance, Appetite Change Related History: Positive For: Prior Psychiatric Issues - Dx of depression Has Suicidal: Reports: Thoughts, With A Plan Has Homicidal: Denies: Thoughts, With A Plan - Allergies/Home Medications Allergies/Adverse Reactions: Allergies Allergy/AdvReac Type Severity Reaction Status Date / Time amoxicillin Allergy Hives Verified 04/22/19 20:09 Home Medications: Home Medications NK [No Home Medications Reported] 04/22/19 [History Confirmed 04/22/19] PMH/Surg Hx/FS Hx/Imm Hx Previously Healthy: Yes Endocrine/Hematology History: Denies: Hx Anticoagulant Therapy, Hx Diabetes, Hx Thyroid Disease Cardiovascular History: Denies: Hx Congestive Heart Failure, Hx Deep Vein Thrombosis, Hx Hypertension , Hx Myocardial Infarction, Hx Pacemaker/ICD, Other Cardiovascular Problems/ Disorders Respiratory History: Reports: Hx Asthma - has maintenance and rescue meds, Other Respiratory Problems/Disorders - Chronic tonsillitis Denies: Hx Chronic Obstructive Pulmonary Disease (COPD), Hx Lung Cancer, Hx Pneumonia, Hx Pulmonary Embolism GI History: Denies: Hx Gall Bladder Disease, Hx Gastrointestinal Bleed, Hx Ulcer, Hx Urosepsis, Other GI Disorders History: Reports: Other Problems/Disorders - 2 UTIs in 2018 Denies: Hx Kidney Stones, Hx Renal Disease Musculoskeletal History: Reports: Other Musculoskeletal History - History of rib injury, right wrist injury, back pain Sensory History: Reports: Hx Contacts or Glasses - Glasses Denies: Hx Hearing Aid Opthamlomology History: Reports: Hx Contacts or Glasses - Glasses Neurological History: Reports: Hx Migraine - history of, none recent-daish piercing helps, Hx Seizures - had a child with high fever, Other Neuro Impairments/Disorders - 5th concussion 08/2017 Denies: Hx Dementia, Hx Transient Ischemic Attacks (TIA) Psychiatric History: Reports: Hx Anxiety, Hx Depression Denies: Hx Schizophrenia, Hx Bipolar Disorder - Surgical History Surgery Procedure, Year, and Place: Tubes in ear 1998 Hx Anesthesia Reactions: No - Immunization History Date of Tetanus Vaccine: utd Date of Influenza Vaccine: none Immunizations Up to Date: No Infectious Disease History: No Infectious Disease History: Reports: Hx Shingles Denies: Hx Clostridium Difficile, Hx Hepatitis, Hx Human Immunodeficiency Virus (HIV), Hx of Known/Suspected MRSA, Hx Tuberculosis, Hx Known/Suspected VRE , Hx Known/Suspected VRSA, History Other Infectious Disease, Traveled Outside the [place] in Last 30 Days - Family History Known Family History: Positive: Hypertension, Respiratory Disease Negative: Cardiac Disease - Social History Occupation: Works From/At Home Lives: With Family - mother Alcohol Use: Weekly Alcohol Amount: couple drinks per week Hx Substance Use: No Substance Use Type: Reports: None Hx Tobacco Use: No Smoking Status (MU): Never Smoked Tobacco Have You Smoked in the Last Year: No Household Exposure: No Review of Systems Gastrointestinal: Other - decreased appetite Psychological: Other - POSITIVE: SI, sleep deprivation Positive: Anxious, Depressed, Other - NEGATIVE: HI All Other Systems Reviewed And Are Negative: Yes Physical Exam - Summary Physical Exam Summary: General: Well-developed, extremely thin female. No acute distress. Tearful, crying, poor eye contact. HEENT: Normocephalic, Atraumatic. Eyes: Conjuctiva normal, PERRL. Ears: TMs within normal limits. Nares: (-) discharge, (-) erythema. Oropharynx: Clear, mucous membranes moist, (-) exudates. Neck: Soft, FROM, (-) lymphadenopathy, (-) thyromegaly, (-) JVD. Cardiovascular: Normal sinus rhythm, (-) murmur. Lungs: Clear to auscultation bilaterally (-) wheezes, (-) rales, (-) rhonchi. Abdomen: Soft, non-tender, non-distended, (-) organomegaly, normal bowel sounds. Back: (-) CVA tenderness Extremities: No edema. Skin: Warm, dry, (-) rash. Neuro: Alert and oriented x3, no focal deficits. Psychiatric: Mood sad, affect normal. Triage Information Reviewed: Yes Vital Signs On Initial Exam: Initial Vitals Temp Pulse Resp BP Pulse Ox 99.6 F 110 20 150/126 97 04/22/19 20:00 04/22/19 20:00 04/22/19 20:00 04/22/19 20:00 04/22/19 20:00 Vital Signs Reviewed: Yes Diagnostics - Vital Signs Vital Signs Temp Pulse Resp BP Pulse Ox 04/22/19 20:00 99.6 F 110 20 150/126 97 - Laboratory Lab Results: Lab Results 04/22/19 Range/Units 20:43 WBC 7.9 (3.5-10.8) 10^3/uL RBC 4.83 (3.70-4.87) 10^6 /uL Hgb 13.7 (12.0-16.0) g/dL Hct 41 (35-47) % MCV 85 (80-97) fL MCH 28 (27-31) pg MCHC 33 (31-36) g/dL RDW 14 (10-15) % Plt Count 358 (150-450) 10^3/uL MPV 7.2 L (7.4-10.4) fL Neut % (Auto) 63.5 % Lymph % (Auto) 29.7 % [place] % (Auto) 6.2 % Eos % (Auto) 0.0 % Baso % (Auto) 0.6 % Absolute Neuts (auto) 5.0 (1.5-7.7) 10^3/ul Absolute Lymphs (auto) 2.4 (1.0-4.8) 10^3/ul Absolute Monos (auto) 0.5 (0-0.8) 10^3/ul Absolute Eos (auto) 0.0 (0-0.6) 10^3/ul Absolute Basos (auto) 0.0 (0-0.2) 10^3/ul Absolute Nucleated RBC 0.0 10^3/ul Nucleated RBC % 0.1 Result Diagrams: 04/22/19 20:43 04/22/19 20:43 Lab Statement: Any lab studies that have been ordered have been reviewed, and results considered in the medical decision making process. Course/Dx - Course Course Of Treatment: This pt is a 23 Y/O F presenting to [facility] with a CC of increasing anxiety and depression that has been worsening over the course of the year. She states that she was seeing a yanni and her symptoms has been getting worse. They started seeing each other in September and they were doing well until October when he had to lay off some of his employees. Her PE found that she is a very thin female who is tearful, crying, and has a very sad mood. She was cleared for a MHE evaluation. She has abnormalities in her Urine labratory results. Dr. Stroud suggested discharging the pt be discharged home with a Dx of depressive episode. - Differential Dx/Clinical Impression Provider Diagnosis: Depressive episode - Physician Notifications Discussed Care Of Patient With: Tong Stroud Time Discussed With Above Provider: 04:11 Instructed by Provider To: Other - Dr. Stroud suggests that the pt be discharged home with a Dx of depressive episode. Admit/Transition Orders Completed By ED Provider: Yes Discharge ED - Sign-Out/Discharge Documenting (check all that apply): Patient Departure - discharge Patient Received Moderate/Deep Sedation with Procedure: No - Discharge Plan Condition: Stable Disposition: HOME Patient Education Materials: Depression (ED), Anxiety (ED) Referrals: Natasha Gaitan MD [Primary Care Provider] - Additional Instructions: Per completion of a mental health evaluation, you are cleared for release and do not require inpatient psychiatric hospitalization at this time. Please go to nearest emergency room or call 911 if safety concerns arise or condition worsens. Please contact ,[facility]....................... [phone], Thursday morning to set up an appointment. Important Phone Numbers: [facility] [phone] Suicide Prevention and Crisis Services........................ [phone] National Suicide Prevention Lifeline............................ 301-071-IIBB (7183) [facility]....................... [phone] Alcoholics Anonymous............................................... [facility].............. [phone] [place] [employer].............................................. Substance Abuse Treatment Programs [facility] [place] [facility]....................... [phone] - Billing Disposition and Condition Condition: STABLE Disposition: Home - Attestation Statements Document Initiated by Jose Guadalupe: Yes Documenting Scribe: Osvaldo Warren Provider For Whom Jose Guadalupe is Documenting (Include Credential): Salima Bryan MD Scribe Attestation: IOsvaldo, scribed for Salima Bryan MD on 04/23/19 at 0651. Scribe Documentation Reviewed: Yes Provider Attestation: The documentation as recorded by the Osvaldo larson accurately reflects the service I personally performed and the decisions made by me, Salima Bryan MD Status of Scribe Document: Viewed
[2019-04-22 21:19] LABS: Acetaminophen < 15 mcg/mL; Alcohol < 10 mg/dL (<10); Salicylate < 2.50 mg/dL (<30)
[2019-04-22 21:20] LABS: ALT 15 U/L (7-52); AST 17 U/L (13-39); Albumin 4.3 g/dL (3.2-5.2); Albumin/Globulin Ratio 1.7 (1-3); Alkaline Phosphatase 37 U/L (34-104); Anion Gap 10 mmol/L (2-11); BUN/Creatinine Ratio 12.5 (8-20); Blood Urea Nitrogen 11 mg/dL (6-24); CO2 Carbon Dioxide 25 mmol/L (22-32); Calcium 9.2 mg/dL (8.6-10.3); Chloride 104 mmol/L (101-111); EGFR African American 95.5 (>60); EGFR Non-African American 78.9 (>60); Globulin 2.5 g/dL (2-4); Glucose 99 mg/dL (70-100); Potassium 3.4 mmol/L (3.5-5.0); Sodium 139 mmol/L (135-145); Total Protein 6.8 g/dL (6.4-8.9)
[2019-04-22 21:28] LABS: HCG Pregnancy < 0.60 mIU/mL
[2019-04-22 21:41] LABS: Urine Appearance Cloudy; Urine Bacteria 1+ (Absent); Urine Bilirubin Negative (Negative); Urine Blood 1+ (Negative); Urine Color Yellow; Urine Glucose Negative (Negative); Urine Ketones 1+ (Negative); Urine Nitrite Negative (Negative); Urine Protein Negative (Negative); Urine Red Blood Cell Trace(0-2/hpf) (Absent); Urine Specific Gravity 1.026 (1.010-1.030); Urine Squamous Epithelial Cell Present (Absent); Urine Urobilinogen Negative (Negative); Urine White Blood Cell 3+(>20/hpf) (Absent)
[2019-04-22 21:48] LABS: Urine Benzodiazepine Screen None Detected (None Detect); Urine Opiates Screen None Detected (None Detect)
[2019-04-23 06:00] VITALS: BP 122/79
--- NOTE | 2019-04-26 06:03 | PN ---
Progress Note - Progress Note Date of Service: 04/26/19 Note: patient urine culture grew staph epidermis 75-100,000. this is likely a contaminant so will not treat at this time.
== END 2019-04-23 04:15 | disposition home or self-care (01) ==
LOC: ED 20:00
DX: F32.9 Major depressive disorder, single episode, unspecified (principal); F41.9 Anxiety disorder, unspecified; Z88.1 Allergy status to other antibiotic agents
CPT/HCPCS: 36415; 80053; 80307; 80320; 80329; 81003; 81015; 84443; 84702; 85025; 87077; 87086; 87186; 99284; G0480

== ENCOUNTER 2019-09-24 21:43 | Emergency (ER) | payer BC, OTHER ==
--- OUTSIDE RECORDS SUMMARY | 2019-09-24 21:54 | XMS REPORT | Continuity of Care Document ---
:1995 Author Organization [facility] Address [address] [place] [address] Phone Care Team Providers Name Role Phone Caden AIR CONDITIONING TECHNICIANHazel Unavailable Unavailable P[facility], NURSE OR MA Unavailable Unavailable Allergies, Adverse Reactions, Alerts Substance Reaction Status No Known Allergies Active Medications Medication Instructions Dosage Effective Dates Status Comments (start - stop) Depo-Provera 150 IM Q 11-13 weeks - Active mg/mL intramuscular suspension CITALOPRAM HBR Not Available - Active (unknown strength) VENTOLIN HFA (unknown Not Available - Active strength) FLOVENT HFA (unknown Not Available - Active strength) PREVIFEM (unknown Not Available - Active strength) Problems Condition Effective Dates (start - Clinical Status Comments stop) Encounter for surveillance of injectable contraceptive Human immunodeficiency virus [HIV] - counseling Human immunodeficiency virus [HIV] - counseling Encntr screen for infections w sexl mode of transmiss Encounter for initial prescription of injectable contracep Human immunodeficiency virus [HIV] - counseling 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, unsp Human immunodeficiency virus [HIV] - counseling Encounter for surveillance of contraceptive pills Encntr screen for infections w sexl mode of transmiss Acute vaginitis Encounter for screening for human - immunodeficiency virus Procedures Procedure Date INJECTION DEPO/CEFTRIAXONE PREVENTIVE COUNSELING, Under 8 Minutes INJECTION OR LAB ONLY VISIT EST DEPO Results Test Name Date and Time Measure Units Reference Range Abnormal Flag Status Comments No information Advance Directives Directive Yes / No Effective Date File Name No information Encounters Encounter Practice Location Reason(s) Diagnoses Date Provider Providers Description For Visit Copied on Encounter [facility] Encounter for [facility] [place] surveillance of [address]. Provider: Southern injectable [address] contraceptiveHuman Conchita Coleman, [address], [address] [place] virus [HIV] [place], [place], [place], counseling [place], [place], [address], [place], [address]. [id number], [place]. tel:+ [place] tel: [phone] tel: [phone] [facility] [id number] Provider: NURSE OR ALVIN PPS[facility]. [facility] Human Caden Referring [facility] [place] immunodeficiency [address]. Provider: Southern virus [HIV] [address] counselingEncntr Conchita Coleman, [address], [address] [place] infections w sexl [place], [address], [address], [place], mode of [place], [place], [place], transmiss[place]ounter [address], [place], [address]. [id number], for initial [place]. tel:+ [place] prescription of tel: [phone] tel: injectable [phone] contracep [facility] Human Caden Referring [facility] [place] immunodeficiency [address]. Provider: [place] virus [HIV] [address] counselingFollicula Conchita Coleman, [address] cyst [address], [address] [place] and subcutaneous [place], [address], [address], [place], tissue, unsp [place], [place], [address], [place], [address]. [id number], [place]. tel:+ [place] tel: [phone] tel: [phone] [facility] Human December- White Referring Parenthood [place] immunodeficiency [address]. Provider: [place] virus [HIV] [address] counselingEncounter [place], [address] [place] [address] [place] contraceptive [place], St, St, [place], pillsEncntr screen [place], [place], [place], [place] [address], [place], [address]. [id number], sexl mode of [place]. [place] transmissAcute tel:[phone] vaginitisEncounter [phone] for screening for human immunodeficiency virus Family History Family Member Diagnosis Age At Onset 1st degree relative No hx of venous thromboembolism 1st degree relative No hx of cancer of breast, colon, endometrium or ovary 1st degree relative No hx of coronary heart disease (female <65, male <55) Immunizations Vaccine Date Status Comments No information Payers Payer name Insurance type Covered alliance party ID Authorization(s) [facility] [id number] Social History Type Description Quantity Date Captured [...] Date Type Action Status Referral Ordered: ordered Watchmaking Teacher (related to 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, unsp) Referral Ordered: ordered Referrals: Watchmaking Teacher. Location: [facility] Evaluate and treat History Of Present Illness Encounter Date Complaint History Of Present Illness No information Functional Status Date Functional Assessment No information Medications Administered Medication Instructions Dosage Effective Dates (start - stop) Status Comments No information Instructions Date Instruction Additional Information No information Assessments Type Assessment Date assessment Encounter for surveillance of injectable contraceptive assessment Human immunodeficiency virus [HIV] counseling Goals Health Concern Goal Type Priority Status Date No information Medical Equipment Description Device Glover Device Identifier Effective Dates (start - stop ) Status No information Mental Status Date Cognitive Assessment No information Health Concerns Observation Date No information Concern Status Date No information
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
--- OUTSIDE RECORDS SUMMARY | 2019-09-24 21:54 | XMS REPORT | Summary of Care ---
:1995 Author Organization [facility] Address [address] [address] Care Team Providers Name Role Phone Natasha Gaitan MD Primary Care Provider Reason for Referral Medication Prior Authorization (Routine) Status Reason Specialty Diagnoses / Procedures Referred By Contact Referred To Contact Closed Diagnoses Asthma, unspecified asthma severity, unspecified whether complicated, unspecified whether persistent Jared Powell MD [address] [place] [address] Reason for Visit Reason Comments Check Up reacurring UTI, lower back pain, if possible discuss meds for depression and anxiety Encounter Details Date Type Department Care Team Description 09/03/2019 Office Visit [facility] Jared Powell MD Acute cystitis without hematuria (Primary Dx); Practice [address] [facility] Asthma, unspecified asthma severity, unspecified whether complicated, unspecified whether persistent; [address] [place] [address] [place] [address] [phone] Allergies Active Allergy Reactions Severity Noted Date Comments Amoxicillin Hives Medium 09/03/2019 Penicillins Hives Medium 09/03/2019 documented as of this encounter (statuses as of 09/03/2019) Medications Medication Sig Dispensed Refills Start End Status Date Date Rgeodmkrqia-Cdadqbhx-O Place 2 Drops 0 Active olysorb (REFRESH [...] severity, unspecified whether complicated, unspecified whether persistent levoFLOXacin 250 MG Take 250 mg by 10 Tab 0 Active Oral TabIndications: mouth TWICE 0 020 Acute cystitis without DAILY for 7 hematuria days. phenazopyridine Take 1 Tab by 12 Tab 0 Active (PYRIDIUM) 100 MG Oral mouth THREE 0 TabIndications: Acute TIMES DAILY. cystitis without hematuria fluticasone (FLOVENT Take 2 Puffs 1 Inhaler 5 Discontinued HFA) 44 MCG/ACT by inhalation 9 020 (Reorder) Inhalation TWICE DAILY. AerosolIndications: Asthma, unspecified asthma severity, unspecified whether complicated, unspecified whether persistent albuterol HFA Take 2 Puffs 1 Inhaler 5 Discontinued (VENTOLIN) 108 (90 by inhalation 9 020 (Reorder) Base) MCG/ACT EVERY FOUR Inhalation Aero HOURS SolnIndications: NEEDED Asthma, unspecified (wheezing). asthma severity, unspecified whether complicated, unspecified whether persistent Norgestimate-Ethinyl Take 1 Tab by 84 Tab 0 Discontinued Estradiol (SPRINTEC mouth DAILY. 9 020 (No longer 28) 0.25-35 MG-MCG clinically Oral TabIndications: indicated) Oral contraceptive pill surveillance documented as of this encounter (statuses as of 09/03/2019) Active Problems Problem Noted Date Concussion with no loss of consciousness 02/11/2019 JOAN (generalized anxiety disorder) 04/22/2017 Anxiety Allergic conjunctivitis documented as of this encounter (statuses as of 09/03/2019) Immunizations Name Administration Dates Next Due DTAP [...] Sign Reading Time Taken Comments Blood Pressure 118/60 09/03/2019 11:26 AM EST Pulse 94 09/03/2019 11:26 AM EST Temperature 36.9 09/03/2019 11:26 AM EST C (98.5 F) Respiratory Rate - - Oxygen Saturation 95% 09/03/2019 11:26 AM EST Inhaled Oxygen Concentration - - Weight 50.3 kg (111 lb) 09/03/2019 11:26 AM EST Height 165.1 cm (5' 5") 09/03/2019 11:26 AM EST Body Mass Index 18.47 09/03/2019 11:26 AM EST documented in this encounter Progress Notes Jared Powell MD - 09/03/2019 11:00 AM EST PATIENT: Padmini Bryant : 1995 DATE OF SERVICE: 09/03/2019 CHIEF COMPLAINT: Chief Complaint Patient presents with Check Up reacurring UTI, lower back pain, if possible discuss meds for depression and anxiety Subjective HISTORY OF PRESENT ILLNESS: Padmini Bryant is a 23-y.o. female. Pt presents with 3 days of urinary burning. Took pyridium last night but it didn 't resolve so she made an appointment. States she was sexually active last weekend and did not urinate following as is her usual pattern. She does complain of left sided back pain but this was happening before the UTI symptoms started. No fevers, chills. She typically uses a condom but not always. Past Medical History: Diagnosis Date Allergic conjunctivitis Anxiety Broken rib left side 03/2013 Depression Family History Problem Relation Age of Onset Diabetes Mother Current Outpatient Medications Medication Sig albuterol HFA (VENTOLIN) 108 (90 Base) MCG/ACT Inhalation Aero Soln Take 2 Puffs by inhalation EVERY FOUR HOURS NEEDED (wheezing). Bnpaybyphdo-Pkmbcsed-Bfyznpbd (REFRESH OPTIVE ADVANCED) 0.5-1-0.5 % Ophthalmic Solution Place2 Drops to the external eye DAILY. citalopram (CELEXA) 20 MG Oral Tab Take 1.5 Tabs by mouth DAILY. doxycycline (VIBRAMYCIN) 100 MG Oral Tab Take 100 mg by mouth TWICE DAILY. fluticasone (FLOVENT HFA) 44 MCG/ACT Inhalation Aerosol Take 2 Puffs by inhalation TWICE DAILY. methylPREDNISolone Acetate (DEPO-MEDROL IJ) by Injection route. No current facility-administered medications for this visit. [...] file Gets together: Not on file Attends hinduism service: Not on file Active member of [...] History Narrative Graduated [employer], [employer] and [employer]. Works at a gym, hotel front desk clerk: phone calls, computer, paperwork. REVIEW OF SYSTEMS: Review of Systems Constitutional: Negative for chills, diaphoresis, fever, malaise/fatigue and weight loss. Genitourinary: Positive for dysuria, frequency and urgency. Negative for flank pain and hematuria. Musculoskeletal: Positive for neck pain. Negative for myalgias. Neurological: Negative for dizziness and headaches. Objective PHYSICAL EXAM: VITALS: BP 118/60 (BP Location: Right arm, Patient Position: Sitting) | Pulse 94 | Temp 98.5 F (36.9 C) (Tympanic) | Ht 5' 5" (1.651 m) | Wt 111 lb (50.3 kg) | SpO2 95% | BMI 18.47 kg/m Body mass index is 18.47 kg/m . Physical Exam Vitals signs and nursing note reviewed. Constitutional: General: She is not in acute distress. Appearance: Normal appearance. She is not ill-appearing, toxic-appearing or diaphoretic. Cardiovascular: Rate and Rhythm: Normal rate and regular rhythm. Pulses: Normal pulses. Heart sounds: Normal heart sounds. No murmur. No friction rub. No gallop. Pulmonary: Effort: Pulmonary effort is normal. Breath sounds: Normal breath sounds. No wheezing or rhonchi. Abdominal: General: Abdomen is flat. Bowel sounds are normal. Tenderness: There is no abdominal tenderness. There is no right CVA tenderness, left CVA tenderness, guarding or rebound. Musculoskeletal: Normal range of motion. Neurological: Mental Status: She is alert. ASSESSMENT / IMPRESSION: ICD-9-CM ICD-10-CM 1. Asthma, unspecified asthma severity, unspecified whether complicated, unspecified whether persistent 493.90 J45.909 fluticasone (FLOVENT HFA) 44 MCG/ ACT Inhalation Aerosol albuterol HFA (VENTOLIN) 108 (90 Base) MCG/ACT Inhalation Aero Soln 1. Asthma, unspecified asthma severity, unspecified whether complicated, unspecified whether persistent Refills of medication. No other action required. - fluticasone (FLOVENT HFA) 44 MCG/ACT Inhalation Aerosol; Take 2 Puffs by inhalation TWICE DAILY. Dispense: 1 Inhaler; Refill: 5 - albuterol HFA (VENTOLIN) 108 (90 Base) MCG/ACT Inhalation Aero Soln; Take 2 Puffs by inhalation EVERY FOUR HOURS NEEDED (wheezing). Dispense: 1 Inhaler ; Refill: 5 2. Acute cystitis without hematuria UA done today. Will also check STD but given history, expect this is UTI vice STD dysuria. Given hervague back pain on one side only but no CVA tenderness, will use levoquin in case this is early pyelo. Advised the patient to go to an ED if she develops fever, worsening back pain or the dysuria does not resolve. - levoFLOXacin 250 MG Oral Tab; Take 250 mg by mouth TWICE DAILY for 7 days. Dispense: 10 Tab; Refill: 0 - phenazopyridine (PYRIDIUM) 100 MG Oral Tab; Take 1 Tab by mouth THREE TIMES DAILY. Dispense: 12 Tab; Refill: 0 - URINALYSIS (LAB) WITH REFLEX CULTURE; Future - GC/CHLAMYDIA PCR ASSAY; Future - GC/CHLAMYDIA PCR ASSAY - URINALYSIS (LAB) WITH REFLEX CULTURE 3. Dysuria As above. - URINALYSIS (LAB) WITH REFLEX CULTURE; Future - URINALYSIS (LAB) WITH REFLEX CULTURE Plan As above. Follow up with PCM for other non-acute concerns. Author: Jared Powell MD 09/03/2019 11:58 documented in this encounter Plan of Treatment Name Type Priority Associated Diagnoses Date/Time URINALYSIS (LAB) WITH Lab Routine Acute cystitis without 09/03/2019 12:06 PM EST REFLEX CULTURE hematuria Dysuria GC/CHLAMYDIA PCR ASSAY Lab Routine Acute cystitis without 09/03/2019 11:23 AM EST hematuria Name Type Priority Associated Diagnoses Order Schedule URINALYSIS (LAB) WITH Lab Routine Acute cystitis without Expected: 2019 REFLEX CULTURE hematuria (Approximate), Expires: Dysuria 03/01/2020 GC/CHLAMYDIA PCR ASSAY Lab Routine Acute cystitis without 1 Occurrences starting hematuria 09/03/2019 until 03/01/2020 Health Maintenance Due Date Last Done Comments [...] is an individualized lifestyle goal for Padmini Bryant: Please maintain a regular sleep schedule. This [...] filedocumented in this encounter Visit Diagnoses Diagnosis Asthma, unspecified asthma severity, unspecified whether complicated, unspecified whether persistent Acute cystitis without hematuria Acute cystitis Dysuria documented in this encounter Insurance Payer Benefit Plan / Subscriber ID Effective Dates Phone Address Type Group [facility] xxxxxxxxxxxx 2018-Present Blue Cross/Blue Shield Guarantor Name Account Type Relation to Date of Phone Billing Patient Address Padmini Bryant Alfonso Personal/Family 1995 [address] (Work) [place] [phone] documented as of this encounter
[2019-09-24] MEDS ORDERED: NS 0.9% 1000 ML** 1,000 ML IV ONE (22:19)
[2019-09-24] MEDS ORDERED: Ondansetron INJ* 2 MG/ML VIAL IV ONE (22:20)
[2019-09-24] MEDS ORDERED: Ketorolac INJ* 30 MG/ML 1 ML VIAL IV PUSH ONE (22:30)
[2019-09-24 22:35] LABS: ABS Lymphocytes 3.3 10^3/ul (1.0-4.8); ABS Monocytes 0.6 10^3/ul (0-0.8); Eosinophil % 0.5 %; Hematocrit 39 % (35-47); Hemoglobin 13.4 g/dL (12.0-16.0); Lymphocyte % 47.4 %; Mean Corpuscular HGB Conc 34 g/dL (31-36); Mean Corpuscular Hemoglobin 30 pg (27-31); Mean Corpuscular Volume 87 fL (80-97); Mean Platelet Volume 6.8 fL (7.4-10.4); Platelet Count 317 10^3/uL (150-450); Red Blood Count 4.52 10^6 /uL (3.70-4.87); Red Cell Distribution Width 14 % (10-15); White Blood Count 7.1 10^3/uL (3.5-10.8)
[2019-09-24 22:48] LABS: Albumin 4.5 g/dL (3.2-5.2); Anion Gap 6 mmol/L (2-11); CO2 Carbon Dioxide 26 mmol/L (22-32); Chloride 107 mmol/L (101-111); Potassium 3.8 mmol/L (3.5-5.0); Sodium 139 mmol/L (135-145)
--- NOTE | 2019-09-24 22:51 | ED ---
GI/ HPI - HPI Summary HPI Summary: 23 year old female presents with intermittent flank/back pain for the past month. States that she was having urinary symptoms about 3 weeks ago was diagnosed with UTI. she states the urinary symptoms have improved. States that she has had intermittent nausea and dizziness. She states she felt like she is was going to pass out today. She states she has a history asthma and depression. She has no previous abdominal surgeries. She states before this month she never had these symptoms before. States that she is on the deop shot and has been having spotting. Denies abnormal vaginal discharge. she denies any hematuria. She denies any loss of bowel or bladder. No saddle anesthesias. no pain in legs. - History of Current Complaint Chief Complaint: EDFlankPain Time Seen by Provider: 09/24/19 22:11 Stated Complaint: KIDNEY ISSUES PER PT Hx Last Menstrual Period: 03/23/19 Pain Intensity: 8 - Allergy/Home Medications Allergies/Adverse Reactions: Allergies Allergy/AdvReac Type Severity Reaction Status Date / Time amoxicillin Allergy Hives Verified 09/24/19 21:49 PMH/Surg Hx/FS Hx/Imm Hx Endocrine/Hematology History: Denies: Hx Anticoagulant Therapy, Hx Diabetes, Hx Thyroid Disease Cardiovascular History: Denies: Hx Congestive Heart Failure, Hx Deep Vein Thrombosis, Hx Hypertension , Hx Myocardial Infarction, Hx Pacemaker/ICD, Other Cardiovascular Problems/ Disorders Respiratory History: Reports: Hx Asthma - has maintenance and rescue meds, Other Respiratory Problems/Disorders - Chronic tonsillitis Denies: Hx Chronic Obstructive Pulmonary Disease (COPD), Hx Lung Cancer, Hx Pneumonia, Hx Pulmonary Embolism GI History: Denies: Hx Gall Bladder Disease, Hx Gastrointestinal Bleed, Hx Ulcer, Hx Urosepsis, Other GI Disorders History: Reports: Other Problems/Disorders - 2 UTIs in 2018 Denies: Hx Kidney Stones, Hx Renal Disease Musculoskeletal History: Reports: Other Musculoskeletal History - History of rib injury, right wrist injury, back pain Sensory History: Reports: Hx Contacts or Glasses - Glasses Denies: Hx Hearing Aid Opthamlomology History: Reports: Hx Contacts or Glasses - Glasses Neurological History: Reports: Hx Migraine - history of, none recent-daish piercing helps, Hx Seizures - had a child with high fever, Other Neuro Impairments/Disorders - 5th concussion 08/2017 Denies: Hx Dementia, Hx Transient Ischemic Attacks (TIA) Psychiatric History: Reports: Hx Anxiety, Hx Eating Disorder, Hx Depression, Hx of Violent Episodes Against Others Denies: Hx Schizophrenia, Hx Bipolar Disorder - Surgical History Surgery Procedure, Year, and Place: Tubes in ear 1998 Hx Anesthesia Reactions: No - Immunization History Date of Tetanus Vaccine: utd Date of Influenza Vaccine: none Infectious Disease History: No Infectious Disease History: Reports: Hx Shingles Denies: Hx Clostridium Difficile, Hx Hepatitis, Hx Human Immunodeficiency Virus (HIV), Hx of Known/Suspected MRSA, Hx Tuberculosis, Hx Known/Suspected VRE , Hx Known/Suspected VRSA, History Other Infectious Disease, Traveled Outside the [place] in Last 30 Days - Family History Known Family History: Positive: Hypertension, Respiratory Disease Negative: Cardiac Disease - Social History Alcohol Use: Weekly Alcohol Amount: couple drinks per week Hx Substance Use: No Substance Use Type: Reports: None Hx Tobacco Use: No Smoking Status (MU): Never Smoked Tobacco Have You Smoked in the Last Year: No Review of Systems Positive: Fatigue. Negative: Fever Negative: Chest Pain Negative: Shortness Of Breath Positive: Nausea Positive: flank pain All Other Systems Reviewed And Are Negative: Yes Physical Exam Triage Information Reviewed: Yes Vital Signs On Initial Exam: Initial Vitals Temp Pulse Resp BP Pulse Ox 97.9 F 86 16 139/95 99 09/24/19 21:44 09/24/19 21:44 09/24/19 21:44 09/24/19 21:44 09/24/19 21:44 Vital Signs Reviewed: Yes Appearance: Positive: Well-Appearing Skin: Positive: Warm, Dry Head/Face: Positive: Normal Head/Face Inspection Eyes: Positive: Normal, Conjunctiva Clear ENT: Positive: Pharynx normal Respiratory/Lung Sounds: Positive: Clear to Auscultation, Breath Sounds Present Cardiovascular: Positive: Normal, RRR Abdomen Description: Positive: Nontender, Soft, CVA Tenderness (L) Bowel Sounds: Positive: Present Musculoskeletal: Positive: Strength/ROM Intact - back, Other - tenderness lower back, neg SLR, sensation grossly intact, good pulses Neurological: Positive: Normal Psychiatric: Positive: Normal Procedures - Sedation Patient Received Moderate/Deep Sedation with Procedure: No Diagnostics - Vital Signs Vital Signs Temp Pulse Resp BP Pulse Ox 09/24/19 22:36 60 120/86 98 09/24/19 22:24 83 99 09/24/19 21:44 97.9 F 86 16 139/95 99 - Laboratory Lab Results: Lab Results 09/24/19 09/24/19 Range/Units 22:27 22:27 WBC 7.1 (3.5-10.8) 10^3/uL RBC 4.52 (3.70-4.87) 10^6 /uL Hgb 13.4 (12.0-16.0) g/dL Hct 39 (35-47) % MCV 87 (80-97) fL MCH 30 (27-31) pg MCHC 34 (31-36) g/dL RDW 14 (10-15) % Plt Count 317 (150-450) 10^3/uL MPV 6.8 L (7.4-10.4) fL Neut % (Auto) 43.2 % Lymph % (Auto) 47.4 % [place] % (Auto) 8.2 % Eos % (Auto) 0.5 % Baso % (Auto) 0.7 % Absolute Neuts (auto) 3.0 (1.5-7.7) 10^3/ul Absolute Lymphs (auto) 3.3 (1.0-4.8) 10^3/ul Absolute Monos (auto) 0.6 (0-0.8) 10^3/ul Absolute Eos (auto) 0.0 (0-0.6) 10^3/ul Absolute Basos (auto) 0.0 (0-0.2) 10^3/ul Absolute Nucleated RBC 0.0 10^3/ul Nucleated RBC % 0.0 Sodium 139 (135-145) mmol/L Potassium 3.8 (3.5-5.0) mmol/L Chloride 107 (101-111) mmol/L Carbon Dioxide 26 (22-32) mmol/L Anion Gap 6 (2-11) mmol/L BUN Pending Creatinine Pending Est GFR ( Amer) Pending Est GFR (Non-Af Amer) Pending BUN/Creatinine Ratio Pending Glucose Pending Calcium 9.0 (8.6-10.3) mg/dL Total Bilirubin 0.50 (0.2-1.0) mg/dL AST Pending ALT Pending Alkaline Phosphatase Pending C-Reactive Protein Pending Total Protein Pending Albumin 4.5 (3.2-5.2) g/dL Globulin Pending Albumin/Globulin Ratio Pending Lipase Pending Beta HCG, Quant Pending Result Diagrams: 09/24/19 22:27 09/24/19 22:27 Lab Statement: Any lab studies that have been ordered have been reviewed, and results considered in the medical decision making process. - CT abd CT Interpretation Completed By: Radiologist Summary of CT Findings: IMPRESSION: No visible renal, ureteral or bladder calculi. Re-Evaluation - Re-Evaluation First Eval Re-Evaluation Time: 00:10 Change: Improved Comment: feeling better Second Eval Re-Evaluation Time: 01:09 Comment: feeling better after fluids and zofran GIGU Course/Dx - Course Course Of Treatment: 23 year old female presents with intermittent flank/back pain for the past month. States that she was having urinary symptoms about 3 weeks ago was diagnosed with UTI. she states the urinary symptoms have improved. States that she has had intermittent nausea and dizziness. She states she felt like she is was going to pass out today. She states she has a history asthma and depression. She has no previous abdominal surgeries. She states before this month she never had these symptoms before. States that she is on the deop shot and has been having spotting. Denies abnormal vaginal discharge. she denies any hematuria. She denies any loss of bowel or bladder. No saddle anesthesias. On exam tenderness over left flank and left lower back. White blood count normal. CT shows no stone. crp normal. urine shows no infection. feeling better after fluids and zofran. will discharge with zofran as needed for nausea. back pain is likely muscular. told follow up with primary. patient understand and agrees with plan. - Diagnoses Differential Diagnoses - Female: Urinary Tract Infection, Ureteral Calculi, Other - sprain Provider Diagnoses: Back pain, Nausea Discharge ED - Sign-Out/Discharge Documenting (check all that apply): Patient Departure - Discharge Plan Condition: Good Disposition: HOME Prescriptions: Ondansetron ODT TAB* [Zofran 4 MG Odt TAB*] 4 mg PO Q6H PRN #20 tab.odt PRN Reason: Nausea Patient Education Materials: Back Pain (ED) Referrals: Jared Powell MD [Primary Care Provider] - Additional Instructions: take zofran every 6 hours for needed for nausea Use ibuprofen or Tylenol for pain every 6 hours ice/heat area, move as much as possible Follow up with primary within 5 days Return to ED if develop any new or worsening symptoms - Billing Disposition and Condition Condition: GOOD Disposition: Home
[2019-09-24 22:54] LABS: ALT 12 U/L (7-52); AST 15 U/L (13-39); Alkaline Phosphatase 44 U/L (34-104); BUN/Creatinine Ratio 19.1 (8-20); Blood Urea Nitrogen 17 mg/dL (6-24); C Reactive Protein < 1.00 mg/L (<8.01); EGFR African American 94.3 (>60); EGFR Non-African American 77.9 (>60); Globulin 2.2 g/dL (2-4); Glucose 93 mg/dL (70-100); Total Protein 6.7 g/dL (6.4-8.9)
[2019-09-24 22:58] LABS: HCG Pregnancy < 0.60 mIU/mL
[2019-09-25 00:59] LABS: Urine Appearance Cloudy; Urine Bilirubin Negative (Negative); Urine Blood Negative (Negative); Urine Color Yellow; Urine Glucose Negative (Negative); Urine Ketones Negative (Negative); Urine Nitrite Negative (Negative); Urine Protein Negative (Negative); Urine Specific Gravity 1.027 (1.010-1.030); Urine Urobilinogen Negative (Negative)
[2019-09-25 01:18] VITALS: BP 120/87
== END 2019-09-25 01:16 | disposition home or self-care (01) ==
LOC: ED 21:43
DX: M54.9 Dorsalgia, unspecified (principal); R11.0 Nausea; J45.909 Unspecified asthma, uncomplicated; F41.9 Anxiety disorder, unspecified; F32.9 Major depressive disorder, single episode, unspecified; Z88.0 Allergy status to penicillin
CPT/HCPCS: 36415; 74176; 80053; 81003; 83690; 84702; 85025; 86140; 96361; 96374; 96375; 99283; J1885; J2405